=== PATIENT | female | born 1985 | race Caucasian/White ===

== ENCOUNTER → 2019-10-06 | Outpatient (CLI) | payer OTHER | LOC: COL.RAD 10-02 14:00 | DX: M25.552 Pain in left hip (principal) | CPT/HCPCS: A9585; J3301; Q9967 ==

== ENCOUNTER 2019-12-24 09:50 | Outpatient (RCR) | payer OTHER | END 2020-01-11 14:12 | disposition home or self-care (01) | LOC: WSC 09:50 | DX: Z98.890 Other specified postprocedural states (principal) ==

== ENCOUNTER 2020-03-30 10:00 | Outpatient (RCR) | payer OTHER | END 2020-03-31 | disposition home or self-care (01) | LOC: WSC | DX: Z01.818 Encounter for other preprocedural examination (principal); S73.191A Other sprain of right hip, initial encounter ==

== ENCOUNTER → 2020-04-18 | Outpatient (RCR) | payer OTHER | END | disposition home or self-care (01) | LOC: WSC → WSPT 04-05 15:15 → WSC 04-06 10:00 | DX: Z01.818 Encounter for other preprocedural examination (principal); S73.191A Other sprain of right hip, initial encounter ==

== ENCOUNTER 2021-02-02 10:15 | Outpatient (RCR) | payer OTHER | END 2021-02-22 | LOC: PT.GENESIS | DX: M25.551 Pain in right hip (principal) ==

== ENCOUNTER 2022-06-08 09:45 | Outpatient (RCR) | payer OTHER | END 2022-06-12 | disposition home or self-care (01) | LOC: PT.GENESIS | DX: Z98.890 Other specified postprocedural states (principal) ==

== ENCOUNTER → 2022-07-13 | Outpatient (RCR) | payer OTHER | END | disposition home or self-care (01) | LOC: PT.GENESIS | DX: Z98.890 Other specified postprocedural states (principal) ==

== ENCOUNTER 2022-08-08 13:00 | Outpatient (RCR) | payer OTHER | END 2022-08-12 | disposition home or self-care (01) | LOC: PT.GENESIS | DX: Z98.890 Other specified postprocedural states (principal) ==